=== PATIENT | male | born 1955 | race Caucasian/White ===

== ENCOUNTER 2017-01-21 14:01 | Inpatient (IN) | payer OTHER ==
[2017-01-21] VITALS (17 sets, daily range): BP systolic 107–135; BP diastolic 64–91; PULSE 66–82; RESP 13–27; Ht 188 cm; Wt 90.9 kg
[~2017-01-21] VITALS: Ht 188 cm; Wt 90.9 kg
[~2017-01-21 14:01] MED LIST: GEMF600T PO; METO-53 PO
[2017-01-21] MEDS ORDERED: ISOS30TA5 PO (17:49)
[2017-01-21] MEDS ORDERED: NITR0.4T32 SL (17:49)
[2017-01-21] MEDS ORDERED: CARV6.2579 PO ×2 (17:49→18:16)
[2017-01-21] MEDS ORDERED: ASPI81TA3 PO (17:49)
[2017-01-21] MEDS ORDERED: ATOR40TA68 PO (17:49)
[2017-01-21] MEDS ORDERED: DOCUSATE SODIUM 100 MG CAP PO PRN (18:00)
[2017-01-21] MEDS ORDERED: FENTAnyl 50 MCG/ML VIAL ONE (18:00)
[2017-01-21] MEDS ORDERED: NITROGLYCERIN (SL) 0.4 MG TAB SL PRN (18:00)
[2017-01-21] MEDS ORDERED: HYDROCODONE/APAP (5/325) TAB PO PRN (18:00)
[2017-01-21] MEDS ORDERED: LORAZEPAM 0.5 MG TAB PO PRN (18:00)
[2017-01-21] MEDS ORDERED: ACETAMINOPHEN 325 MG TAB PO PRN ×2 (18:00→20:00)
[2017-01-21] MEDS ORDERED: IODIXANOL LOCM 100 ML BTL ONE (18:00)
[2017-01-21] MEDS ORDERED: MIDAZOLAM 1 MG/ML 2 ML INJ ONE (18:00)
[2017-01-21] MEDS ORDERED: MAGNESIUM HYDROXIDE 30ML CUP PO PRN (18:00)
[2017-01-21] MEDS ORDERED: ZOLPIDEM 5 MG TAB PO PRN (18:00)
[2017-01-21] MEDS ORDERED: HEPARIN 1000 UNITS/ML 10 ML INJ ONE (18:00)
[2017-01-21] MEDS ORDERED: ONDANSETRON 4 MG INJ IV PRN ×2 (18:00→20:00)
[2017-01-21] MEDS ORDERED: morphine 2 MG INJ IV PRN ×2 (18:00→20:00)
[2017-01-21] MEDS ORDERED: VERAPAMIL 5 MG INJ ONE (18:00)
[2017-01-21] MEDS ORDERED: NACL 0.9% 3 ML SYG IV SCH (18:00)
[2017-01-21] MEDS ORDERED: LIDOCAINE 1% (MDV) 20 ML INJ ONE (18:00)
[2017-01-21] MEDS ORDERED: BISACODYL 10 MG SUPP PR PRN (18:00)
[2017-01-21] MEDS ORDERED: NITROGLYCERIN (IC) 100 MCG/ML INJ ONE (18:00)
[2017-01-21] MEDS ORDERED: RANI150T5 PO (18:16)
[2017-01-21] MEDS ORDERED: LOSA50TA6 PO (18:16)
[2017-01-21] MEDS ORDERED: ALDS PO (18:16)
[2017-01-21] MEDS ORDERED: SPIRINOLACTONE PO (18:16)
[2017-01-21] MEDS ORDERED: SOD CHLORIDE 0.9% 1,000 ML IV SCH (19:33)
--- NOTE | 2017-01-21 19:35 | SIPON ---
Date/Time of Note Date/Time of Note DATE: 01/21/17 TIME: 19:34 Operative Report Preoperative Diagnosis 1.CHest pain 2, Abnl MPI Postoperative Diagnosis 1.Non-obstructive cad Operation/Procedure Performed 1.[facility] Surgeon see signature line perioperative assistant Jeff Anesthesia: moderate sedation Estimated blood loss: minimal Transfusion Required none Specimen NA Grafts/Implants none Complications none AALIYAH TRAMMELL Jan 21, 2017 19:35
[2017-01-21] MEDS ORDERED: AL HYDROX/MG HYDROX/SIMETH 30 ML CUP PO PRN (20:00)
[2017-01-21] MEDS ORDERED: ATORVASTATIN 40 MG TAB PO SCH (21:00)
[2017-01-21] MEDS ORDERED: SOD CHLORIDE 0.9% 500 ML ONE (21:05)
[2017-01-21] MEDS ORDERED: ZOLPIDEM 5 MG TAB PO ONE (22:53)
[2017-01-21] MEDS: GEMFIBROZIL 600 MG TAB PO SCH (23:03)
[2017-01-21] MEDS: FAMOTIDINE 20 MG TAB PO SCH (23:03)
[2017-01-22 00:53] VITALS: PULSE 66
[2017-01-22 03:58] VITALS: BP 109/62; RESP 18
[2017-01-22 04:24] VITALS: PULSE 64
[2017-01-22 06:36] LABS: BASOPHILS % 0.5 % (0.0-2.0); EOSINOPHILS # 0.1 10^3/ul (0.0-0.5); EOSINOPHILS % 1.2 % (0.0-7.0); HEMATOCRIT 43.8 % (42.0-52.0); HEMOGLOBIN 14.5 g/dl (14.0-18.0); LYMPHOCYTES # 1.3 10^3/ul (0.8-2.9); LYMPHOCYTES % 15.4 % (15.0-51.0); MEAN CORPUSCULAR HEMOGLOBIN 30.8 pg (29.0-33.0); MEAN CORPUSCULAR HGB CONC 33.1 g/dl (32.0-37.0); MEAN PLATELET VOLUME 9.1 fl (7.4-10.4); MONOCYTE # 0.5 10^3/ul (0.3-0.9); MONOCYTES % 5.8 % (0.0-11.0); NEUTROPHIL # 6.3 10^3/ul (1.6-7.5); NEUTROPHILS % 76.7 % (39.0-77.0); PLATELET COUNT 269 10^3/UL (140-415); RED BLOOD COUNT 4.71 10^6/ul (4.70-6.10); RED CELL DISTRIBUTION WIDTH 12.4 % (11.5-14.5); WHITE BLOOD COUNT 8.2 10^3/ul (4.8-10.8)
[2017-01-22 07:16] VITALS: BP 142/88; RESP 17
[2017-01-22 07:19] LABS: ALBUMIN 3.7 g/dl (3.3-4.9); ALBUMIN/GLOBULIN RATIO 1.23; BILIRUBIN,INDIRECT 0.6 mg/dl (0-1.1); BILIRUBIN,TOTAL 0.6 mg/dl (0.2-1.3); CALCIUM 9.1 mg/dl (8.4-10.2); CREATININE 1.2 mg/dl (0.61-1.24); MAGNESIUM 1.8 mg/dl (1.7-2.5); POTASSIUM 3.9 mmol/L (3.5-5.1); TOTAL PROTEIN 6.7 g/dl (6.1-8.1)
[2017-01-22] MEDS: FAMOTIDINE 20 MG TAB PO SCH (08:27)
[2017-01-22] MEDS: GEMFIBROZIL 600 MG TAB PO SCH (08:29)
[2017-01-22 08:45] VITALS: PULSE 74
[2017-01-22] MEDS ORDERED: ASPIRIN 81 MG TAB PO SCH (09:00)
[2017-01-22] MEDS ORDERED: ISOSORBIDE MONONITRATE(SR)30 MG TAB PO SCH (09:00)
--- NOTE | 2017-01-22 09:44 | HP ---
Date/Time of Note Date/Time of Note DATE: 01/22/17 TIME: 09:24 Assessment/Plan VTE Prophylaxis VTE Prophylaxis Intervention: SCD's Lines/Catheters IV Catheter [facility] Saline Lock Assessment/Plan Assessment/Plan 61-year-old male with; 1. Chest pain, abnormal outpatient stress test, ongoing symptoms, status post angiogram last night with non-obstructive coronary artery disease, continue medical treatment. Chest pain likely atypical. Follow-up with outpatient earring maker within 1-2 weeks. 2. Hypertension: continue home medications 3. Hyperlipidemia: Continue home medications 4. Insomnia: Patient was requesting a prescription for Ambien, however asked him to ask his primary care physician. Prophylaxis: She is ambulatory, tolerating p.o. Disposition: Appreciate Dr. Emery availability yesterday, discharge patient home this morning. Follow-up with outpatient earring maker within 1-2 weeks as needed. Follow-up with PCP within 1-2 weeks. HPI/ROS Admit Date/Time Admit Date/Time Jan 21, 2017 at 16:59 Hx of Present Illness Chief complaint: Chest pain, abnormal stress test as an outpatient History of presenting illness: This is a 61-year-old male with hyperlipidemia, hypertension ongoing chest pain for a few weeks, he was evaluated as an outpatient by cardiology, he reportedly had an abnormal stress test, he was scheduled for an angiogram as an outpatient in the next few weeks. He presented at [facility] with complaint of left-sided chest pain, given his previous workup he was transferred to [facility] for angiogram. Dr. Emery was kind enough to do his angiogram yesterday, all vessels are open no obstructive coronary artery disease. Patient is stable for discharge today. He is to stay on his outpatient medications. ROS Constitutional: improved, no complaints Eyes: no complaints ENT: no complaints Respiratory: no complaints Cardiovascular: chest pain Gastrointestinal: no complaints Genitourinary: no complaints Musculoskeletal: no complaints Skin: no complaints Endocrine: no complaints Lymphatic: no complaints PMH/Family/Social Past Medical History Medical History: GERD, high cholesterol, hypertension Past Surgical History Past Surgical Hx: appendectomy, other (Hernia repair remotely) Family History Significant Family History: no pertinent family hx Social History Alcohol Use: none Smoking Status: Never smoker Drug Use: none Exam/Review of Systems Vital Signs Vitals Vital Signs Date Time Temp Pulse Resp B/P Pulse Ox O2 Delivery O2 Flow Rate FiO2 01/22/17 08:45 74 01/22/17 07:16 97.9 17 142/88 98 01/21/17 21:57 Room Air Intake and Output 01/21/17 01/21/17 01/22/17 15:00 23:00 07:00 Intake Total 400 ml Balance 400 ml Exam Constitutional: alert, oriented, well developed Respiratory: clear to auscultation, normal air movement Cardiovascular: nl pulses, regular rate and rhythm Gastrointestinal: non-tender, soft Musculoskeletal: nl extremities to inspection, nl gait and stance Extremities: normal pulses, other (No edema, clubbing or cyanosis) Neurological: PACKAGING LINE OPERATOR II-XII intact, nl mental status, nl speech, nl strength Labs Result Diagram: 01/22/17 0549 01/22/17 0549 Medications Medications Current Medications Lorazepam (Ativan) 0.5 mg Q8H PRN PO ANXIETY; Start 01/21/17 at 18:00 Aspirin (Aspirin) 81 mg DAILY PO Last administered on 01/22/17 08:28; Admin Dose 81 MG; Start 01/22/17 at 09:00 Nitroglycerin (Nitroglycerin (Sl Tab) 0.4 Mg) 1 tab Q5M PRN SL CHEST PAIN; Start 01/21/17 at 18:00 Acetaminophen (Tylenol Tab) 650 mg Q6H PRN PO PAIN LEVEL 1-3 OR FEVER; Start 01/21/17 at 18:00 Acetaminophen/ Hydrocodone Bitart ([place] (5/325)) 1 tab Q6H PRN PO PAIN LEVEL 4 -6; Start 01/21/17 at 18:00 Zolpidem Tartrate (Ambien) 5 mg QHS PRN PO INSOMNIA; Start 01/21/17 at 18:00 Docusate Sodium (Colace) 100 mg Q12H PRN PO CONSTIPATION; Start 01/21/17 at 18 :00 Magnesium Hydroxide (Milk Of Mag) 30 ml DAILY PRN PO CONSTIPATION; Start 01/21 at 18:00 Bisacodyl (Dulcolax Supp) 10 mg DAILY PRN [place] CONSTIPATION; Start 01/21/17 at 18:00 Famotidine (Pepcid) 20 mg Q12 PO Last administered on 01/22/17 08:27; Admin Dose 20 MG; Start 01/21/17 at 21:00 Atorvastatin Calcium (Lipitor) 40 mg QHS PO Last administered on 01/21/17 23: 03; Admin Dose 40 MG; Start 01/21/17 at 21:00 Carvedilol (Coreg) 6.25 mg BID PO Last administered on 01/22/17 08:28; Admin Dose 6.25 MG; Start 01/21/17 at 21:00 Gemfibrozil (Lopid) 600 mg BID PO Last administered on 01/22/17 08:29; Admin Dose 600 MG; Start 01/21/17 at 21:00 Isosorbide Mononitrate (Imdur) 30 mg DAILY PO Last administered on 01/22/17 08:29; Admin Dose 30 MG; Start 01/22/17 at 09:00 Acetaminophen (Tylenol Tab) 650 mg Q4H PRN PO NON-CARDIAC PAIN LEVEL (1-3); Start 01/21/17 at 20:00 Morphine Sulfate (morphine) 2 mg Q2H PRN IV FOR NON CARDIAC PAIN (4-10); Start 01/21/17 at 20:00 Al Hydrox/Mg Hydrox/Simethicone (Mag-Al Plus) 30 ml Q4H PRN PO GASTROINTESTINAL UPSET; Start 01/21/17 at 20:00 Ondansetron HCl (Zofran Inj) 4 mg Q4H PRN IV NAUSEA AND/OR VOMITING; Start at 20:00 Procedures Procedures Date/Time of Note Date/Time of Note DATE: 01/21/17 TIME: 19:34 Operative Report Preoperative Diagnosis 1.CHest pain 2, Abnl MPI Postoperative Diagnosis 1.Non-obstructive cad Operation/Procedure Performed 1.[facility] Surgeon see signature line senior care assistant Jeff Anesthesia: moderate sedation Estimated blood loss: minimal Transfusion Required none Specimen NA Grafts/Implants none Complications none AALIYAH EMERY Jan 21, 2017 19:35 BRI TREADWELL Jan 22, 2017 09:34
--- NOTE | 2017-01-22 09:49 | PDOCDIS ---
Discharge Instructions CONDITION Patient Condition: Stable HOME CARE INSTRUCTIONS: Diet Instructions: Low Fat /Cholesterol ACTIVITY: Activity Restrictions: No Restrictions FOLLOW UP/APPOINTMENTS Follow-up Plan Follow-up with PCP within 1 week Follow up with cardiology outpatient as needed in 1-2 weeks SCHOOL/WORK RELEASE May return to School/Work on: Jan 24, 2017 BRI TREADWELL Jan 22, 2017 09:48
--- NOTE | 2017-01-24 07:43 | CONS ---
DATE OF ADMISSION: 01/21/2017 DATE OF CONSULTATION: 01/21/2017 TYPE OF CONSULTATION: Cardiology. REASON FOR CONSULTATION: Chest pain concerning for unstable angina. REQUESTING PHYSICIAN: Dr. Treadwell. HISTORY OF PRESENT ILLNESS: Mr. Hilton is a 61-year-old male with history of hypertension, coron narinder artery disease, recently positive stress test, who was to have an outpatient catheterization, bu t subsequently presented to [facility] with complaints of substernal chest pain, describe d as a pressure-like sensation. The patient states pain is worse with walking and ambulation. The patient, at [facility], was ruled out for myocardial infarction and placed on ____ medica l therapy with carvedilol, Imdur, losartan, Lopid, statin therapy and aspirin. The patient continue s to have chest pain, and is now being transferred to [facility] for further evalu ation and treatment and possible cardiac catheterization. PAST MEDICAL HISTORY: As above in HPI. MEDICATIONS PRIOR TO ADMIT: From outside hospital: 1. Aspirin 81 mg daily. 2. Lipitor 40 mg at bedtime. 3. Carvedilol 6.25 mg p.o. b.i.d. 4. Pepcid 20 mg daily. 5. Lopid 600 mg b.i.d. 6. Imdur 30 mg daily. 7. Losartan 50 mg b.i.d. 8. Sublingual nitroglycerin. 9. Aldactone 25 mg b.i.d. 10. Flomax 0.4 mg daily. 11. Ambien p.r.n. ALLERGIES: NO KNOWN DRUG ALLERGIES. SOCIAL HISTORY: No tobacco, ETOH or illicit drug use currently. FAMILY HISTORY: Negative for sudden cardiac or early CAD. REVIEW OF SYSTEMS: Noted as above in HPI. CONSTITUTIONAL: No fevers, chills. PULMONARY: No current shortness of breath. CARDIOVASCULAR: Chest pain. GASTROINTESTINAL: No vomiting. GENITOURINARY: No hematuria. MUSCULOSKELETAL: Degenerative joint disease. PSYCHIATRIC: No documented psych history. NEUROLOGIC: No documented CVA. PHYSICAL EXAMINATION: VITAL SIGNS: The patient just arrived at the hospital and therefore, vital signs were taken from [facility] prior to transfer, temperature 98.1, blood pressure 110/70, pulse 77, respiration 20, satting 93%. GENERAL: The patient is alert, awake, in no acute distress. NECK: JVP approximately 8-9 cm water. CHEST: Fair air movement throughout. HEART: Regular rate and rhythm. Normal S1, S2, I/ systolic murmur, nondisplaced PMI. ABDOMEN: Positive bowel sounds, soft. EXTREMITIES: No edema, 1+ pulses bilaterally, posterior tibial. LABORATORY DATA: Most recently from outside hospital on the : White blood cell count 8.9, hemo globin ____, platelet count of 336. Sodium 138, potassium 4.1, creatinine 1.2, BUN 25. Troponin ne gative. LDL 112, HDL 63. INR 1.0. IMAGING STUDIES: Chest x-ray from the revealing no acute cardiopulmonary abnormalities. ELECTROCARDIOGRAM: No electrocardiogram in the chart for my review at this time. Per outside hospi navjot notes, ____, attending help desk engineer at the outside hospital. Results of EKG not actually li sted. IMPRESSION: 1. Chest pain concerning for unstable angina, assess for acute coronary syndrome. 2. Abnormal cardiac stress test, positive ischemia. Assess for acute coronary syndrome. 3. Hypertension. 4. Dyslipidemia with low HDL. 5. Renal insufficiency. RECOMMENDATIONS: At this time, patient will be maintained on his current medical therapy and the patricia stovall will be scheduled for a cardiac cath to likely take place tomorrow morning, if not this evenin g, to further evaluate for the possibility of significant ____ related to symptoms of chest pain and subsequent admit to outside hospital with positive stress test findings. Thank you for allowing me to take part in the care of this patient. I will continue to follow along very closely with you. Further recommendations will be made as the patient progresses through his inpatient hospital clinical course. Dictated By: AALIYAH JORDAN/FAUSTINO Conf#: [id number] DID#: [id number] CC: BRI TREADWELL MD;*End*
--- NOTE | 2017-01-24 07:43 | CARRPT ---
DATE OF PROCEDURE: 01/21/2017 TYPE OF PROCEDURE: 1. Left heart catheterization. 2. Coronary angiography. 3. Measurement of left ventricular end diastolic pressure. 4. Moderate conscious sedation. ATTENDING PHYSICIAN: Aaliyah Emery MD. REFERRING PHYSICIAN: Dr. Treadwell. INDICATION: Chest pain, positive stress test for ischemia. TYPE OF ANESTHESIA: Constant local. BRIEF HISTORY: Mr. Hilton is a 61-year-old male with history of hypertension and dyslipidemia wh o initially presented to outside hospital with chest pain. The patient ruled out for myocardial inf arction, underwent a recent stress test revealing positive ischemia and subsequent for outpatient ca ia catheterization but has been transferred to [facility] in order to undergo l eft heart catheterization to assess for the possibility of significant obstructive coronary artery d isease lending to symptoms of chest pain and subsequently admitted to the hospital and positive stre ss test findings. PROCEDURE: After informed consent, the patient was brought to the [facility] card iac laborer electroplating where his right radial area was prepped and draped in usual sterile fashion, inje cted right radial area in order to achieve adequate anesthesia. Using modified Seldinger technique, the right radial artery was cannulated and a 6-Irish arterial was placed. A 6-Irish JL3.5 cathet er was used to cannulate the left main coronary ostium. With contrast injection, multiple views of the left coronary arterial system were obtained. JL3.5 was removed over a guidewire and a JR4 was u sed to cannulate the right coronary arterial ostium. With contrast injection, multiple views of the right coronary arterial system were obtained. JR4 was initially used in an attempt to cannulate th e right coronary arterial ostium, which proved unsuccessful but did cross the LV so left ventricular end diastolic pressure was measured and pullback across the aortic valve to assess for significant gradient, which there was not and removed. Subsequently, a Que right was then used to cannulat e the right coronary arterial ostium. With contrast injection, multiple views of the right coronary arterial system were obtained. The Que right was removed and this completed the procedure. T here were no noted complications. The patient's sheath was removed. TR band was applied. There we re no noted complications. Additionally, it should be noted at the onset of the procedure, the ramonita ent did receive a radial cocktail of 5000 units of heparin, mg of verapamil and 200 mcg of nit roglycerin. FINDINGS: 1. Coronary angiography. Left main short, 4.5 mm, no significant stenoses. Circ proximally is a 3 .5 mm vessel and has no significant focal stenoses its entirety. The circ continuation AV groove is free of significant focal stenoses. Proximal branching obtuse marginal 3 mm with a 20% stenosis an d into a daughter branch which is 2 mm with no significant focal stenoses. The LAD proximally is a 4 mm vessel and in its proximal portion it has luminal irregularities up to approximately 20%. The remainder of the LAD is free from focal stenoses around the apex. There is a mid-branching di agonal 2 mm vessel with no significant focal stenoses. The right coronary artery proximally is a 3. 5 mm vessel and has no significant luminal irregularities, it is a dominant vessel and gives off a 2 mm PDA and a 2 mm posterolateral branch each with no significant focal stenoses. Measurement of left ventricular end diastolic pressure 12 with no significant aortic stenosis by gra dient. TOTAL FLUOROSCOPY TIME: 5.8 minutes. TOTAL CONTRAST: 100 mL. IMPRESSION: 1. Essentially normal coronary arteries with very mild nonobstructive coronary artery disease. 2. Somewhat sluggish flow throughout the vessels indicative of possible microvascular disease. 3. Normal left heart filling pressures. 4. No significant aortic stenosis by gradient. RECOMMENDATIONS: In light of procedure and findings would: 1. Maximize medical management. 2. Aggressive risk factor reduction. 3. The patient will be readmitted to telemetry floor for post-catheterization observation with poss ible discharge later this evening or tomorrow a.m. Dictated By: AALIYAH JORDAN/FAUSTINO Conf#: [id number] DID#: [id number] CC: BRI TREADWELL MD;*End*
== END 2017-01-22 11:40 | disposition home or self-care (01) | DRG 287 ==
LOC: TEL 16:59
PROVIDERS: ADMIT Internal Medicine; ATTEND Internal Medicine
PROC: B2101ZZ Fluoroscopy of Single Coronary Artery using Low Osmolar Contrast (ICD-10-PCS; 2017-01-21)
PROC: 4A023N7 Measurement of Cardiac Sampling and Pressure, Left Heart, Percutaneous Approach (ICD-10-PCS; principal; 2017-01-21 18:30)
DX: I25.10 Atherosclerotic heart disease of native coronary artery without angina pectoris (principal); I10 Essential (primary) hypertension; E78.5 Hyperlipidemia, unspecified; G47.00 Insomnia, unspecified; Z79.82 Long term (current) use of aspirin
CPT/HCPCS: 80053; 80061; 83735; 85025; 93458; G0378; C1887; J1644; J2250; J3010; J7030; J7040; Q9967